=== PATIENT | female | born 1980 ===

== ENCOUNTER 2017-04-07 20:56 | Inpatient (IN) | payer MEDICAID ==
[2017-04-07] MEDS ORDERED: BRETHINE IVP PRN (22:08)
[2017-04-07] MEDS ORDERED: XYLOCAINE 2% INFILTRATI ONE (22:08)
[2017-04-07] MEDS ORDERED: POLYCILLIN/NS 2 GM/100 ML 2 GM/100 ML BAG IV ONE (22:08)
[2017-04-07] MEDS ORDERED: CERVIDIL VG ONE (22:08)
[2017-04-07] MEDS ORDERED: BRETHINE SUB-Q PRN (22:08)
[2017-04-07] MEDS ORDERED: MINERAL OIL PO PRN (22:08)
[2017-04-07] MEDS ORDERED: ePHEDrine SULFATE IV PRN (22:08)
--- NOTE | 2017-04-07 22:14 | History and Physical Report ---
History of Present Illness Date of examination: 04/08/17 Date of admission: 04/07/17 20:56 Chief complaint: Here for induction of labor at 39.1 weeks per APA recommendation. History of present illness: care at [facility] since 10 weeks gestation. Hx of DVT in Left thigh in Sep 2015. Has been taking Lovenox 70mg bid during this . GBS+. Last dose of Lovenox Monday am. Past History Past Medical History: deep vein thrombosis (left thigh 2015) Past Surgical History: other (Lymph node biopsy (neg) in childhood) [employer] COORDINATOR History: herpes Family/Genetic History: heart disease, hypertension, cancer Social history: no significant social history - Obstetrical History Expected Date of Delivery: 04/11/17 Actual Gestation: 39 Week(s) 4 Day(s) : 2 Spontaneous Abortions: 5 Number of Living Children: 2 Medications and Allergies Allergies Allergy/AdvReac Type Severity Reaction Status Date / Time No Known Allergies Allergy Unverified 03/11/16 11:29 Home Medications Medication Instructions Recorded Confirmed Last Taken Type No Known Home Medications [No 03/11/16 04/07/17 Unknown History Reported Home Medications] Review of Systems All systems: negative - Vital Signs Vital signs: Vital Signs Pulse BP 77 115/70 04/07/17 21:13 04/07/17 21:13 Temp Pulse Resp BP Pulse Ox 77 115/70 04/07/17 21:13 04/07/17 21:13 - Physical Exam Breasts: Positive: deferred Cardiovascular: Regular rate Lungs: Positive: Clear to auscultation Abdomen: Positive: soft Genitourinary (Female): Positive: normal external genitalia Vulva: both: normal Vagina: Positive: normal moisture Uterus: Positive: enlarged Deep Tendon Reflex Grade: Normal +2 - Obstetrical FHR: category 1 Uterine Contraction Monitor Mode: External Cervical Dilatation: 5 (arom, clear) Cervical Effacement Percentage: 80 station: -1 Results Result Diagrams: 04/07/17 23:45 All other labs normal. Assessment and Plan O: Arom clear fluid, 5/80/-1, CAT I tracing, IUPC and FSE placed A: Induction of labor at 39.4 weeks for obesity and prior hx of DVT P: Expect
[2017-04-07] MEDS ORDERED: PITOCin/NS 20 UNIT/1000ML DRIP 20 UNITS/1,000 ML BAG IV SCH (23:00)
[2017-04-07] MEDS: LACTATED RINGERS 1,000 ML IV SCH (23:50)
[2017-04-08 00:41] LABS: Hematocrit 35.1 % (30.3-42.9); Hemoglobin 11.7 gm/dl (10.1-14.3); Mean Corpuscular HGB Conc 33 % (30-34); Mean Corpuscular Hemoglobin 34 pg (28-32); Mean Corpuscular Volume 101 fl (79-97); Platelet Count 185 K/mm3 (140-440); Red Blood Count 3.47 M/mm3 (3.65-5.03); Red Cell Distribution Width 13.2 % (13.2-15.2); White Blood Count 9.5 K/mm3 (4.5-11.0)
[2017-04-08] MEDS: SUBLIMAZE IV PRN ×2 (04:05→09:15)
[2017-04-08] MEDS: LACTATED RINGERS 1,000 ML IV SCH ×3 (07:20→12:51)
[2017-04-08] MEDS: PITOCin/NS 30 UNIT/500ML 30 UNITS/500 ML BAG IV SCH ×4 (09:48→12:49)
[2017-04-08] MEDS ORDERED: ZOFRAN IV PRN (10:08)
[2017-04-08] MEDS: STADOL IV PRN ×2 (10:22→11:09)
[2017-04-08] MEDS ORDERED: STADOL IV PRN (11:09)
[2017-04-08] MEDS: POLYCILLIN/NS 1 GM/50 ML 1 GM/50 ML BAG IV SCH ×2 (11:15→11:27)
[2017-04-08] MEDS ORDERED: NARCAN 2 MG/2 ML IV PRN (12:37)
[2017-04-08] MEDS ORDERED: ePHEDrine SULFATE IV PRN ×2 (12:37→15:10)
--- NOTE | 2017-04-08 12:37 | Anesthesia Consultation ---
Anesthesia Consult and Med Hx Date of service: 04/08/17 - Airway Anesthetic Teeth Evaluation: Good ROM Head & Neck: Inadequate Mental/Hyoid Distance: Adequate Intubation Access Assessment: Possibly Difficult - Pre-Operative Health Status ASA Pre-Surgery Classification: ASA3, Emergency Proposed Anesthetic Plan: Epidural, Spinal - Pulmonary Hx Asthma: No COPD: No Hx Pneumonia: No - Cardiovascular System Hx Hypertension: No - Central Nervous System Hx Seizures: No Hx Psychiatric Problems: No - Endocrine Hx Renal Disease: No Hx End Stage Renal Disease: No Hx Hypothyroidism: No Hx Hyperthyroidism: No - Hematic Hx Anemia: No Hx Sickle Cell Disease: No - Other Systems Hx Alcohol Use: No Hx Obesity: Yes (morbid)
[2017-04-08] MEDS: fentaNYL-BUPIV 2 MCG/ML-0.125% 200 MCG/100 ML BAG EPIDURAL SCH ×3 (13:03→13:33)
[2017-04-08] MEDS ORDERED: PEPCID IV ONE (13:44)
[2017-04-08] MEDS ORDERED: REGLAN ONE (13:44)
[2017-04-08] MEDS ORDERED: BICITRA ONE (13:44)
[2017-04-08] MEDS ORDERED: BRETHINE ONE (13:53)
[2017-04-08] MEDS ORDERED: NARCAN 2 MG/2 ML ONE (14:04)
[2017-04-08] MEDS ORDERED: ANCEF/STERILE WATER 2 GM/20 ML 2 GM/20 ML SYRINGE IV ONE (14:13)
[2017-04-08] MEDS ORDERED: LACTATED RINGERS 1,000 ML ONE (14:17)
[2017-04-08] MEDS ORDERED: XYLOCAINE MPF 2% ONE (14:20)
[2017-04-08] MEDS ORDERED: MORPHINE ONE (14:24)
--- NOTE | 2017-04-08 14:49 | Operative Report ---
Operative Report Operative Report: Date of procedure: 04/08/2017 Pre-operative diagnosis: 1. Intrauterine at 39-4/7 weeks 2. History of DVT 3. Failed induction of labor 4. Non-reassuring surveillance Post-operative diagnosis: Same Procedure name(s): Primary low transverse section Surgeon: Dread Benítez MD Printing Shop Supervisor: None Anesthesia: Epidural anesthesia by Dr. Cope EBL: 500 mL's Findings: A 3728 g male infant Apgars 8 at 1 minute 9 at 5 minutes. Clear amniotic fluid. Normal uterus. Normal tubes and ovaries bilaterally. Procedure: After the patient was prepped and draped in usual sterile fashion, and after satisfactory level of epidural anesthesia was obtained, the skin knife was used to make a transverse skin incision. The incision was excised down to layer of the fascia, which was nicked in the midline and extended laterally using the Bovie cautery. The rectus muscles were dissected off the rectus fascia both superiorly and inferiorly. The rectus bellies in the midline, and the peritoneum was entered under direct visualization. The peritoneal incision was extended superiorly and inferiorly. A bladder flap was created and the bladder blade was then placed. The uterus was scored in a curvilinear linear fashion, entered in the midline revealing clear amniotic fluid. The infant's head was delivered onto the surgical field, and the oropharynx and nasopharynx were bulb suctioned. The rest of the infant's body was delivered, cord was doubly clamped and cut and the was handed to the waiting respiratory team. Cord blood was then obtained. The placenta was manually removed from the uterus, and the uterus removed from its normal anatomical position. After gentle uterine lavage, the incision was inspected and found to be without extensions. It was then closed in 2 layers using 0 Vicryl suture in a running interlocking fashion, the second layer imbricating the first. After good hemostasis was achieved, copious amounts or irrigation was performed, and the gutters were suctioned free of blood and blood clots. Tisseel sealant was sprayed across the uterine incision. The uterus was then returned to its normal anatomical position, and after excellent hemostasis assured, the peritoneum was reapproximated using 3-0 Vicryl suture in a running interlocking fashion, and then the rectus muscles were reapproximated using 3-0 Vicryl suture in a [id number] configuration. The fascia was then reapproximated using 0 Vicryl suture in running interlocking fashion. The subcutaneous layer was made hemostatic using Bovie cautery, the Tisseel sealant was sprayed across the fascial incision and the skin edges reapproximated using 4-0 Vicryl suture in a subcuticular fashion. Patient tolerated the procedure well was transported to recovery in stable condition.
[2017-04-08] MEDS ORDERED: TYLENOL PO PRN (14:51)
[2017-04-08] MEDS ORDERED: NORCO 5/325 PO PRN (14:51)
[2017-04-08] MEDS ORDERED: TUCKS PAD TP PRN (14:51)
[2017-04-08] MEDS ORDERED: PHENERGAN PR PRN (14:51)
[2017-04-08] MEDS ORDERED: TORADOL IV PRN (14:51)
[2017-04-08] MEDS ORDERED: NARCAN 0.4 MG/1 ML IV PRN ×2 (14:51→15:03)
[2017-04-08] MEDS ORDERED: SENOKOT PO PRN (14:51)
[2017-04-08] MEDS ORDERED: MYLICON PO PRN (14:51)
[2017-04-08] MEDS ORDERED: LANSINOH TP PRN (14:51)
[2017-04-08] MEDS ORDERED: ePHEDrine SULFATE ONE (14:59)
[2017-04-08] MEDS ORDERED: PITOCin/NS 20 UNIT/1000ML DRIP 20 UNITS/1,000 ML BAG IV SCH (15:00)
[2017-04-08] MEDS ORDERED: SODIUM CHLORIDE FLUSH SYRINGE 10 ML IV NR (15:00)
[2017-04-08] MEDS ORDERED: ANCEF/NS 1 GM/50 ML 1 GM/50 ML BAG IV SCH (15:00)
--- NOTE | 2017-04-08 15:06 | Anesthesia Day of Surgery ---
Anesthesia Day of Surgery - Day of Surgery Patient Examined: Yes Patient H&P Reviewed: Yes Patient is NPO: Yes
--- NOTE | 2017-04-08 15:07 | Post Anesthesia Evaluation ---
- Post Anesthesia Evaluation Patient Participated: Yes Airway Patent: Yes Stable Respiratory Function: Yes Temp > 96.8F: Yes Pain Manageable: Yes Adequeate Hydration: Yes Anesthesia Complications: No Block Receding Appropriately: Yes
[2017-04-08] MEDS: D5LR 1,000 ML IV SCH (19:50)
[2017-04-08] MEDS: LOVENOX SUB-Q SCH (22:27)
[2017-04-09] MEDS: D5LR 1,000 ML IV SCH (03:26)
[2017-04-09 05:23] LABS: Hematocrit 31.4 % (30.3-42.9); Hemoglobin 10.2 gm/dl (10.1-14.3)
[2017-04-09] MEDS ORDERED: BOOSTRIX IM ONE (06:00)
[2017-04-09] MEDS ORDERED: ANCEF/NS 1 GM/50 ML 1 GM/50 ML BAG IV SCH (06:00)
[2017-04-09] MEDS ORDERED: M-M-R II VACCINE SUB-Q ONE (06:00)
[2017-04-09] MEDS: FEOSOL PO SCH (10:23)
[2017-04-09] MEDS: PRENATAL VITAMIN PO SCH (10:23)
[2017-04-09] MEDS: LOVENOX SUB-Q SCH ×2 (10:23→22:00)
[2017-04-09] MEDS: MILK OF MAGNESIA PO PRN (10:41)
--- NOTE | 2017-04-09 10:51 | Progress Note ---
Assessment and Plan A: POD #1 -stable P; Continue post-op care Subjective - Subjective Date of service: 04/09/17 Principal diagnosis: for distress Interval history: care at [facility] since 10 weeks gestation. Hx of DVT in Left thigh in Sep 2015. Has been taking Lovenox 70mg bid during this . GBS+. Last dose of Lovenox Monday am. Patient reports: appetite normal [place]: doing well Objective - Vital Signs Latest vital signs: Vital Signs Temp Pulse Resp BP Pulse Ox 04/09/17 08:05 98.3 F 78 20 110/54 04/09/17 04:26 98.6 F 74 20 132/53 04/09/17 00:00 98.3 F 76 20 110/60 04/08/17 20:00 98.2 F 74 20 134/72 04/08/17 16:25 97.8 F 71 18 112/47 04/08/17 15:43 86 16 105/54 100 04/08/17 15:41 85 15 105/54 100 04/08/17 15:40 86 16 105/54 100 04/08/17 15:39 84 17 103/50 100 04/08/17 15:37 84 17 103/50 100 04/08/17 15:35 89 17 103/50 100 04/08/17 15:33 90 17 105/49 100 04/08/17 15:31 90 17 105/49 100 04/08/17 15:30 87 16 105/49 100 04/08/17 15:29 91 H 15 102/48 100 04/08/17 15:27 91 H 16 102/48 100 04/08/17 15:25 90 17 102/48 100 04/08/17 15:23 90 17 103/47 100 04/08/17 15:21 92 H 17 103/47 100 04/08/17 15:20 91 H 17 103/47 100 04/08/17 15:19 94 H 17 101/46 100 04/08/17 15:17 92 H 16 101/46 100 04/08/17 15:15 92 H 17 101/46 100 04/08/17 15:13 90 17 103/43 100 04/08/17 15:11 92 H 18 103/43 100 04/08/17 15:10 89 15 103/43 100 04/08/17 15:09 89 19 100/37 100 04/08/17 15:07 93 H 14 100/37 100 04/08/17 15:05 87 13 100/37 100 04/08/17 15:03 90 18 106/44 100 04/08/17 15:01 92 H 17 106/44 100 04/08/17 15:00 90 13 106/44 100 04/08/17 14:59 94 H 14 100/45 100 04/08/17 14:57 97 H 19 100/45 96 04/08/17 14:55 94 H 18 100/45 97 04/08/17 14:53 93 H 18 88/37 97 04/08/17 14:51 86 13 88/37 96 04/08/17 14:50 90 19 88/37 97 04/08/17 14:49 86 17 85/33 97 04/08/17 14:47 91 H 16 85/33 97 04/08/17 14:46 89 10 L 97 04/08/17 14:45 85 04/08/17 13:51 65 114/55 04/08/17 13:31 74 108/53 04/08/17 13:16 73 114/58 04/08/17 13:03 67 96 04/08/17 13:00 66 121/67 04/08/17 12:58 71 96 04/08/17 12:57 67 117/65 04/08/17 12:53 72 96 04/08/17 12:49 71 112/55 04/08/17 12:48 73 95 04/08/17 12:47 73 115/59 04/08/17 12:45 79 116/57 04/08/17 12:43 73 114/57 97 04/08/17 12:41 75 113/56 04/08/17 12:39 81 122/58 04/08/17 12:38 77 96 04/08/17 12:37 75 115/55 04/08/17 12:35 76 118/61 04/08/17 12:33 71 120/59 97 04/08/17 12:31 71 120/58 04/08/17 12:29 72 131/58 04/08/17 12:28 70 125/60 97 04/08/17 12:26 69 134/75 93 04/08/17 12:23 67 143/70 04/08/17 12:22 67 134/67 04/08/17 12:21 69 97 04/08/17 12:19 72 130/63 04/08/17 12:17 97.4 F L 74 18 135/77 98 04/08/17 12:16 71 135/77 97 04/08/17 12:14 79 145/87 04/08/17 11:22 74 94 04/08/17 11:21 73 95 04/08/17 11:19 66 20 158/72 95 04/08/17 11:18 66 158/72 04/08/17 11:16 78 170/79 04/08/17 11:15 68 183/87 Intake and Output 04/08/17 04/09/17 04/09/17 22:59 06:59 14:59 Intake Total 1360 Output Total 1999 1500 301 Balance -1999140 301 Intake: IV 1000 D5lr 1,000 ml @ 125 mls/ 1000 hr IV DIRECT BORIS Rx#: [id number] Oral 360 Output: Urine 1999 1500 301 Indwelling Catheter 1999 1499 1 Void 300 Other: Total, Intake Amount 120 Total, Output Amount 900 600 301 Voiding Method Indwelling Catheter Estimated Blood Loss 500 - Exam Breasts: Present: deferred Cardiovascular: Present: Regular rate Lungs: Present: Clear to auscultation Abdomen: Present: soft Uterus: Present: fundal height below umbilicus Extremities: Present: normal Deep Tendon Reflex Grade: Normal +2 Incision: Present: dressed
[2017-04-09] MEDS: PERCOCET 5/325 PO PRN (18:31)
[2017-04-10] MEDS: PERCOCET 5/325 PO PRN ×3 (05:25→19:31)
--- NOTE | 2017-04-10 09:40 | Progress Note ---
Assessment and Plan A: POD #2- stable P: Plan discharge home tomorrow Subjective - Subjective Date of service: 04/10/17 Principal diagnosis: for distress Interval history: care at [facility] since 10 weeks gestation. Hx of DVT in Left thigh in Sep 2015. Has been taking Lovenox 70mg bid during this . GBS+. Last dose of Lovenox Monday am. Patient reports: appetite normal [place]: doing well Objective - Vital Signs Latest vital signs: Vital Signs Temp Pulse Resp BP 04/10/17 08:20 98.1 F 74 17 101/58 04/10/17 05:25 18 04/09/17 23:30 98.6 F 80 18 122/64 04/09/17 16:31 98.2 F 84 20 112/62 04/09/17 11:49 98.6 F 80 20 100/62 Intake and Output 04/09/17 04/10/17 04/10/17 22:59 06:59 14:59 Intake Total 240 540 240 Output Total 400 Balance -160 540 240 Intake: Oral 240 240 Intake, Free Water 540 Output: Urine 400 Void 400 Other: Total, Intake Amount 240 240 Total, Output Amount 400 Voiding Method Toilet # Voids Void 1 1 - Exam Breasts: Present: deferred Cardiovascular: Present: Regular rate Lungs: Present: Clear to auscultation Abdomen: Present: soft Vulva: both: normal Deep Tendon Reflex Grade: Normal +2 Incision: Present: intact, dressed
[2017-04-10] MEDS ORDERED: HCTZ PO ONE (10:00)
[2017-04-10] MEDS: MILK OF MAGNESIA PO PRN (10:27)
[2017-04-10] MEDS: MOTRIN PO PRN ×2 (10:28→19:32)
[2017-04-10] MEDS: LOVENOX SUB-Q SCH ×2 (10:32→22:33)
--- NOTE | 2017-04-10 10:34 | Progress Note ---
Subjective Date of service: 04/10/17 Principal diagnosis: for distress Interval history: 2nd POD after Patient is in the bed, comfortable. Pain is well controlled with pain meds. Left leg is little swollen as a result of DVT during the . Ambulated well. No residual neurological deficit. No pruritus. No anesthesia complications Objective - Constitutional Vitals: Vital Signs - 12hr 04/09/17 04/10/17 04/10/17 23:30 05:25 08:20 Temperature 98.6 F 98.1 F Pulse Rate 80 74 Respiratory 18 18 17 Rate Blood Pressure 122/64 101/58 - Labs CBC & Chem 7: 04/09/17 05:05
[2017-04-10] MEDS: PRENATAL VITAMIN PO SCH (17:54)
[2017-04-10] MEDS: FEOSOL PO SCH (17:54)
[2017-04-11] MEDS: PERCOCET 5/325 PO PRN ×2 (07:16→17:43)
--- NOTE | 2017-04-11 08:42 | Discharge Summary ---
Providers - Providers Date of Admission: 04/07/17 20:56 Date of discharge: 04/12/17 Attending physician: CRAIG LAZO MD Primary care physician: CRAIG LAZO MD Hospitalization Reason for admission: induction of labor Delivery: Procedure: primary low transverse Incision: intact (abd binder on) complications: other (hx of thigh DVT, on Lovenox) Discharge diagnosis: IUP at term delivered baby: male Condition at discharge: Good Disposition: DC-01 TO HOME OR SELFCARE Plan - Discharge Medications Prescriptions: Ferrous Sulfate [Feosol 325 MG tab] 325 mg PO BID #60 tablet HYDROcodone/APAP 5-325 [[place] 5/325] 1 each PO Q6HR PRN #30 tablet PRN Reason: Pain Ibuprofen [Motrin] 800 mg PO Q8HR PRN #30 tablet PRN Reason: Moder Pain Unrelieved By [place] Vit W-Ca,Fe,FA(<1 mg) [ Vitamins] 1 each PO DAILY #30 tablet - Provider Discharge Summary Activity: routine, no sex for 6 weeks, no strenuous exercise Diet: routine Instructions: routine Additional instructions: [] Smoking cessation referral if applicable(refer to patient education folder for contact #) [] Refer to [facility]'s [facility] Booklet Call your doctor immediately for: * Fever > 100.5 * Heavy vaginal bleeding ( >1 pad per hour) * Severe persistent headache * Shortness of breath * Reddened, hot, painful area to leg or breast * Drainage or odor from incision. * Keep incision clean and dry at all times and follow doctor's instructions regarding bathing/showering - Follow up plan Follow up: [facility] [Provider Group] - 14 Days
--- NOTE | 2017-04-11 08:42 | Progress Note ---
Assessment and Plan A; PPD #3 - stable P: Discharge home today Subjective - Subjective Principal diagnosis: for distress Interval history: care at [facility] since 10 weeks gestation. Hx of DVT in Left thigh in Sep 2015. Has been taking Lovenox 70mg bid during this . GBS+. Last dose of Lovenox Monday am. Patient reports: appetite normal [place]: doing well Objective - Vital Signs Latest vital signs: Vital Signs Temp Pulse Resp BP 04/11/17 00:00 98.6 F 69 16 122/64 04/10/17 16:00 97.9 F 68 18 118/67 04/10/17 12:05 97.7 F 78 19 138/68 Intake and Output 04/10/17 04/11/17 04/11/17 22:59 06:59 14:59 Intake Total 550 Balance 550 Intake: Oral 550 Other: Total, Intake Amount 250 - Exam Breasts: Present: deferred Cardiovascular: Present: Regular rate Abdomen: Present: soft Uterus: Present: fundal height below umbilicus Extremities: Present: normal Deep Tendon Reflex Grade: Normal +2 Incision: Present: intact
[2017-04-11] MEDS ORDERED: HCTZ PO ONE (10:00)
[2017-04-11] MEDS: LOVENOX SUB-Q SCH ×2 (10:33→22:13)
[2017-04-11] MEDS: PRENATAL VITAMIN PO SCH (10:37)
[2017-04-11] MEDS: FEOSOL PO SCH (10:37)
[2017-04-11] MEDS: MOTRIN PO PRN (17:46)
[2017-04-12] MEDS: PERCOCET 5/325 PO PRN (04:35)
[2017-04-12] MEDS: MOTRIN PO PRN ×2 (04:36→11:34)
[2017-04-12] MEDS: LOVENOX SUB-Q SCH (11:33)
[2017-04-12] MEDS: PRENATAL VITAMIN PO SCH (11:34)
[2017-04-12] MEDS: FEOSOL PO SCH (11:34)
[2017-04-12 17:16] VITALS: BP 120/80
== END 2017-04-12 15:30 | disposition home or self-care (01) | DRG 765 ==
LOC: LD 20:56 → OB 04-08 16:21
PROVIDERS: ADMIT Obstetrics & Gynecology; ATTEND Obstetrics & Gynecology
PROC: 10D00Z1 Extraction of Products of Conception, Low, Open Approach (ICD-10-PCS; principal; 2017-04-08)
PROC: 3E0234Z Introduction of Serum, Toxoid and Vaccine into Muscle, Percutaneous Approach (ICD-10-PCS; 2017-04-09)
DX: O76 Abnormality in fetal heart rate and rhythm complicating labor and delivery (principal); Z68.41 Body mass index [BMI] 40.0-44.9, adult; O61.9 Failed induction of labor, unspecified; O99.214 Obesity complicating childbirth; O99.824 Streptococcus B carrier state complicating childbirth; M79.89 Other specified soft tissue disorders; E66.01 Morbid (severe) obesity due to excess calories; Z3A.39 39 weeks gestation of pregnancy; Z37.0 Single live birth; Z86.718 Personal history of other venous thrombosis and embolism; Z82.49 Family history of ischemic heart disease and other diseases of the circulatory system; Z80.9 Family history of malignant neoplasm, unspecified; Z23 Encounter for immunization
CPT/HCPCS: 36415; 59200; 85014; 85018; 85027; 86850; 86900; 86901; 99211; A6250; C9250; G0463; J0290; J0595; J0690; J1650; J1885; J2270; J2310; J2405; J2590; J2765; J3010; J3105; J7120; J7121

== ENCOUNTER 2017-04-18 05:53 | Emergency (ER) | payer MEDICAID ==
[2017-04-18 06:05] VITALS: BP 127/83
[2017-04-18 06:36] LABS: Hematocrit 36.1 % (30.3-42.9); Hemoglobin 12.1 gm/dl (10.1-14.3); Mean Corpuscular HGB Conc 34 % (30-34); Mean Corpuscular Hemoglobin 34 pg (28-32); Mean Corpuscular Volume 100 fl (79-97); Platelet Count 381 K/mm3 (140-440); Red Cell Distribution Width 12.3 % (13.2-15.2)
[2017-04-18 06:54] LABS: Alanine Aminotransferase 16 units/L (7-56); Albumin 3.5 g/dL (3.9-5); Alkaline Phosphatase 83 units/L (35-129); Anion Gap 16 mmol/L; BUN/Creatinine Ratio 14.28; Blood Urea Nitrogen 10 mg/dL (7-17); Calcium 9.6 mg/dL (8.4-10.2); Carbon Dioxide 24 mmol/L (22-30); Chloride 103.9 mmol/L (98-107); Glucose 96 mg/dL (65-100); Potassium 4.2 mmol/L (3.6-5.0); Sodium 140 mmol/L (137-145)
[2017-04-18 07:49] LABS: Basophils % (Manual) 0 % (0.0-1.8); Blastocytes % (Manual) 0 %; Diff Status Complete; RBC Morphology Normal
== END 2017-04-18 10:20 | disposition left against medical advice (07) ==
LOC: ED 05:53
DX: T81.9XXA Unspecified complication of procedure, initial encounter (principal); Z53.21 Procedure and treatment not carried out due to patient leaving prior to being seen by health care provider
CPT/HCPCS: 36415; 80053; 85007; 85025